=== PATIENT | male | born 1955 | race Caucasian/White ===

== ENCOUNTER 2017-12-27 15:15 | Emergency (ER) | payer MEDICAID ==
[~2017-12-27] VITALS: Ht 180.3 cm; Wt 88.8 kg
[~2017-12-27 15:15] MED LIST: NO HOME MEDS
[2017-12-27 15:29] VITALS: BP 131/88
[2017-12-27] MEDS ORDERED: HYDR-565 PO (15:59)
== END 2017-12-27 16:25 | disposition home or self-care (01) ==
LOC: ER 15:15
DX: M25.561 Pain in right knee (principal)
CPT/HCPCS: 73564; 99284

== ENCOUNTER 2021-04-15 11:15 | Emergency (ER) | payer MEDICARE, MEDICAID ==
[~2021-04-15] VITALS: Ht 180.3 cm; Wt 90.0 kg
[~2021-04-15 11:15] MED LIST changes: +LIDOcaine 1% W/epiNEPHrine 1:200,000 10ml vial ONE
[2021-04-15 12:13] LABS: MEAN PLATELET VOLUME 7.2 FL (7.4-10.4); RED CELL DISTRIBUTION WIDTH 15.3 % (11.5-14.5)
[2021-04-15 12:14] LABS: CLARITY,URINE CLEAR (Clear); COLOR,URINE YELLOW (Yellow); GLUCOSE, URINE NEGATIVE (Neg); KETONES,URINE TRACE mg/dl (Neg); LEUKOCYTE ESTERASE ,URINE NEGATIVE (Neg); NITRITES, URINE NEGATIVE (Neg); OCCULT BLOOD,URINE TRACE-INTACT (Neg); PH,URINE 5.5 (4.8-8.0); PROTEIN,URINE NEGATIVE (Neg)
[2021-04-15 12:15] LABS: BASOPHILS # (AUTO) 0.1 X10'3 (0-0.2); BASOPHILS % (AUTO) 1.5 % (0-1); EOSINOPHILS # (AUTO) 0.1 X10'3 (0-0.9); EOSINOPHILS % (AUTO) 1.7 % (0-6); HEMATOCRIT 41.7 % (42.0-52.0); HEMOGLOBIN 14.7 g/dl (14.0-17.9); LYMPHOCYTES # (AUTO) 1.9 X10'3 (1.1-4.8); LYMPHOCYTES % (AUTO) 26.1 % (21-51); MEAN CORPUSCULAR HGB CONC 35.4 g/dL (33.0-36.5); MEAN CORPUSCULAR VOLUME 101.8 FL (78-98); MONOCYTES # (AUTO) 0.7 X10'3 (0-0.9); MONOCYTES % (AUTO) 10.1 % (2-12); NEUTROPHILS # (AUTO) 4.4 X10'3 (1.8-7.7); NEUTROPHILS % (AUTO) 60.6 % (42-75); PLATELET COUNT 207 X10'3 (140-440); WHITE BLOOD COUNT 7.3 X10'3 (4.5-11.0)
[2021-04-15 12:18] LABS: UA COLLECTION TYPE CLN CATCH MIDSTREAM
[2021-04-15 12:19] LABS: BACTERIA,URINE NONE SEEN /HPF (Neg); MUCUS STRANDS MODERATE /LPF (Neg); RBC,URINE 0-2 /HPF (0-2); SQUAMOUS EPITHELIAL CELL,UR NONE SEEN /LPF (FEW); WBC,URINE NONE SEEN /HPF (0-4)
[2021-04-15 12:21] LABS: ALANINE AMINOTRANSFERASE 50 U/L (12-78); ALBUMIN 2.3 G/DL (3.4-5.0); ALBUMIN/GLOBULIN RATIO 0.4 (1.1-1.5); ALKALINE PHOSPHATASE 208 IU/L (46-116); ANION GAP 7 (8-16); ASPARTATE AMINO TRANSFERASE 64 U/L (10-37); BILIRUBIN,TOTAL 3.2 MG/DL (0.1-1.0); BLOOD UREA NITROGEN 9 MG/DL (7-18); BUN/CREATININE RATIO 10.7 (5.4-32.0); CALCIUM 8.3 MG/DL (8.5-10.1); CHLORIDE 105 MMOL/L (99-107); CREATININE 0.84 MG/DL (0.60-1.10); GLUCOSE 100 MG/DL (70-104); LIPASE 91 U/L (73-393); POTASSIUM 3.5 MMOL/L (3.5-5.1); SODIUM 136 MMOL/L (135-145); TOTAL CARBON DIOXIDE 23.7 MMOL/L (24-32); TOTAL PROTEIN 7.7 G/DL (6.4-8.2); eGFR > 90 ML/MIN
[2021-04-15] MEDS ORDERED: LIDOcaine 1% W/epiNEPHrine 1:200,000 10ml vial IJ ONE (15:05)
--- NOTE | 2021-04-15 15:39 | NUR ---
[facility]cent for paracentesis signed by pt.
[2021-04-15 17:10] VITALS: BP 137/83
--- NOTE | 2021-04-15 17:15 | NUR ---
Pt given and understands d/c instructions. Ambulatory with a steady gait. at bedside.
== END 2021-04-15 17:15 | disposition home or self-care (01) ==
LOC: ER 11:15
DX: K74.60 Unspecified cirrhosis of liver (principal); K70.11 Alcoholic hepatitis with ascites
CPT/HCPCS: 36415; 49083; 74176; 80053; 81001; 83690; 85025; 99285; J3490

== ENCOUNTER 2021-04-20 11:00 | Emergency (ER) | payer MEDICARE, MEDICAID ==
[~2021-04-20] VITALS: Ht 177.8 cm; Wt 93.2 kg
[~2021-04-20 11:00] MED LIST changes: -LIDOcaine 1% W/epiNEPHrine 1:200,000 10ml vial ONE
[2021-04-20] MEDS ORDERED: furosemide 10 MG/1 ML 10ml inj IV ONE (12:15)
[2021-04-20 12:31] LABS: BASOPHILS # (AUTO) 0.1 X10'3 (0-0.2); BASOPHILS % (AUTO) 0.9 % (0-1); EOSINOPHILS # (AUTO) 0.2 X10'3 (0-0.9); EOSINOPHILS % (AUTO) 2.2 % (0-6); HEMATOCRIT 40.9 % (42.0-52.0); HEMOGLOBIN 14.2 g/dl (14.0-17.9); LYMPHOCYTES # (AUTO) 1.9 X10'3 (1.1-4.8); LYMPHOCYTES % (AUTO) 26.1 % (21-51); MEAN CORPUSCULAR HEMOGLOBIN 35.5 PG (27.0-31.0); MEAN CORPUSCULAR HGB CONC 34.7 g/dL (33.0-36.5); MEAN CORPUSCULAR VOLUME 102.1 FL (78-98); MEAN PLATELET VOLUME 7.1 FL (7.4-10.4); MONOCYTES # (AUTO) 0.8 X10'3 (0-0.9); MONOCYTES % (AUTO) 11.6 % (2-12); NEUTROPHILS # (AUTO) 4.2 X10'3 (1.8-7.7); NEUTROPHILS % (AUTO) 59.2 % (42-75); PLATELET COUNT 168 X10'3 (140-440); RED CELL DISTRIBUTION WIDTH 15.1 % (11.5-14.5); WHITE BLOOD COUNT 7.2 X10'3 (4.5-11.0)
[2021-04-20 12:42] LABS: ALANINE AMINOTRANSFERASE 42 U/L (12-78); ALBUMIN 2.2 G/DL (3.4-5.0); ALBUMIN/GLOBULIN RATIO 0.4 (1.1-1.5); ALKALINE PHOSPHATASE 182 IU/L (46-116); ANION GAP 7 (8-16); ASPARTATE AMINO TRANSFERASE 56 U/L (10-37); BLOOD UREA NITROGEN 11 MG/DL (7-18); BUN/CREATININE RATIO 14.5 (5.4-32.0); CALCIUM 7.9 MG/DL (8.5-10.1); CHLORIDE 105 MMOL/L (99-107); CREATININE 0.76 MG/DL (0.60-1.10); GLUCOSE 105 MG/DL (70-104); POTASSIUM 3.5 MMOL/L (3.5-5.1); SODIUM 136 MMOL/L (135-145); TOTAL CARBON DIOXIDE 24.2 MMOL/L (24-32); TOTAL PROTEIN 7.3 G/DL (6.4-8.2); eGFR > 90 ML/MIN
[2021-04-20] MEDS ORDERED: SPIR50TA PO (13:34)
[2021-04-20] MEDS ORDERED: TRAM50TA2 PO (13:34)
[2021-04-20] MEDS ORDERED: CEPH250T PO (13:34)
[2021-04-20 14:02] VITALS: BP 134/84
== END 2021-04-20 14:07 | disposition home or self-care (01) ==
LOC: ER 11:01
DX: R18.8 Other ascites (principal); L03.311 Cellulitis of abdominal wall; K74.60 Unspecified cirrhosis of liver; B18.2 Chronic viral hepatitis C; Z86.19 Personal history of other infectious and parasitic diseases; Z72.89 Other problems related to lifestyle; Z79.2 Long term (current) use of antibiotics; Z79.899 Other long term (current) drug therapy
CPT/HCPCS: 36415; 80053; 85025; 85651; 96374; 99283; J1940

== ENCOUNTER 2021-04-27 07:32 | Day surgery (SDC) | payer MEDICARE, MEDICAID ==
[~2021-04-27] VITALS: Ht 177.8 cm; Wt 91.3 kg
[~2021-04-27 07:32] MED LIST changes: +CEPH250T PO; +SPIR50TA PO; +TRAM50TA2 PO
[2021-04-27 07:50] VITALS: BP 135/84
[2021-04-27] MEDS ORDERED: normal saline 1000ml 1,000 ML IV PRN (07:50)
[2021-04-27] MEDS ORDERED: albumin 25% 100mL bottle x 1 IV PRN (07:50)
[2021-04-27] MEDS ORDERED: FURO20TA4 PO (08:02)
[2021-04-27] MEDS ORDERED: SECU150P SQ (08:02)
[2021-04-27] MEDS ORDERED: SPIR50TA5 PO (08:05)
[2021-04-27] MEDS ORDERED: TRAM50TA2 PO (08:05)
[2021-04-27] MEDS ORDERED: CEPH250C PO (08:05)
[2021-04-27] MEDS ORDERED: LIDOcaine 1% 30ml preserv. free vial IJ STA (08:38)
[2021-04-27 09:26] VITALS: BP 117/76
[2021-04-27 09:45] VITALS: BP 135/70
[2021-04-27 10:00] VITALS: BP 117/67
[2021-04-27 10:30] VITALS: BP 114/72
[2021-04-27 11:00] VITALS: BP 115/78
== END 2021-04-27 11:05 | disposition home or self-care (01) ==
LOC: SSTAY O 07:32
PROVIDERS: ATTEND Preventive Medicine Aerospace Medicine
DX: R18.8 Other ascites (principal); R14.0 Abdominal distension (gaseous); K74.60 Unspecified cirrhosis of liver; Z86.19 Personal history of other infectious and parasitic diseases; Z72.89 Other problems related to lifestyle; Z79.899 Other long term (current) drug therapy; Z79.2 Long term (current) use of antibiotics
CPT/HCPCS: 49083; P9047

== ENCOUNTER 2021-06-05 07:22 | Day surgery (SDC) | payer MEDICARE, MEDICAID ==
[~2021-06-05] VITALS: Ht 177.8 cm; Wt 84.8 kg
[~2021-06-05 07:22] MED LIST changes: +CEPH250C PO; -CEPH250T PO; +FURO20TA4 PO; -NO HOME MEDS; +SECU150P SQ; -SPIR50TA PO; +SPIR50TA5 PO
[2021-06-05] MEDS ORDERED: LIDOcaine 1% 30ml preserv. free vial SQ STA (07:25)
[2021-06-05 07:36] VITALS: BP 125/78
[2021-06-05] MEDS ORDERED: albumin 25% 100mL bottle x 1 IV PRN (07:45)
[2021-06-05 08:40] VITALS: BP 112/72
[2021-06-05 08:55] VITALS: BP 119/73
[2021-06-05 09:10] VITALS: BP 120/63
[2021-06-05 09:26] VITALS: BP 104/62
== END 2021-06-05 09:35 | disposition home or self-care (01) ==
LOC: SSTAY O 07:22
PROVIDERS: ATTEND Preventive Medicine Aerospace Medicine
DX: R18.8 Other ascites (principal); R14.0 Abdominal distension (gaseous); K74.60 Unspecified cirrhosis of liver; Z86.19 Personal history of other infectious and parasitic diseases; Z72.89 Other problems related to lifestyle; Z79.899 Other long term (current) drug therapy
CPT/HCPCS: 49083

== ENCOUNTER 2021-07-11 07:10 | Day surgery (SDC) | payer MEDICARE, MEDICAID ==
[~2021-07-11] VITALS: Ht 177.8 cm; Wt 87.9 kg
[~2021-07-11 07:10] MED LIST changes: -CEPH250C PO
[2021-07-11 07:30] VITALS: BP 112/67
[2021-07-11] MEDS ORDERED: albumin 25% 100mL bottle x 1 IV PRN (07:30)
[2021-07-11] MEDS ORDERED: ONDA-103 PO (07:40)
[2021-07-11] MEDS ORDERED: LACT10SO67 PO (07:40)
[2021-07-11] MEDS ORDERED: OMEP40CA21 PO (07:40)
[2021-07-11] MEDS ORDERED: LIDOcaine 1% 30ml preserv. free vial IJ STA (08:17)
[2021-07-11] MEDS ORDERED: LIDOcaine 1% 30ml preserv. free vial SQ STA (08:38)
[2021-07-11 09:11] VITALS: BP 115/58
[2021-07-11 09:15] VITALS: BP 118/67
[2021-07-11 09:30] VITALS: BP 137/78
[2021-07-11 09:45] VITALS: BP 113/70
[2021-07-11 09:49] VITALS: BP 108/64
== END 2021-07-11 10:00 | disposition home or self-care (01) ==
LOC: SSTAY O 07:10
PROVIDERS: ATTEND Radiology Vascular & Interventional Radiology
DX: R18.8 Other ascites (principal); R14.0 Abdominal distension (gaseous); K74.60 Unspecified cirrhosis of liver; Z86.19 Personal history of other infectious and parasitic diseases; Z72.89 Other problems related to lifestyle; Z79.899 Other long term (current) drug therapy
CPT/HCPCS: 49083; J3490

== ENCOUNTER 2021-07-21 07:54 | Day surgery (SDC) | payer MEDICARE, MEDICAID ==
[~2021-07-21] VITALS: Ht 177.8 cm; Wt 90.4 kg
[2021-07-21] VITALS (9 sets, daily range): BP systolic 96–116; BP diastolic 53–87
[~2021-07-21 07:54] MED LIST changes: +LACT10SO67 PO; +OMEP40CA21 PO; +ONDA-103 PO
[2021-07-21] MEDS ORDERED: LIDOcaine 1%/PF 5ML 10 MG/ML VIAL SQ ONE (08:25)
[2021-07-21] MEDS: albumin 25% 100mL bottle x 1 IV PRN ×2 (09:38→09:39)
== END 2021-07-21 10:35 | disposition home or self-care (01) ==
LOC: SSTAY O 07:54
PROVIDERS: ATTEND Radiology Vascular & Interventional Radiology
DX: R18.8 Other ascites (principal); R14.0 Abdominal distension (gaseous); K74.60 Unspecified cirrhosis of liver; Z86.19 Personal history of other infectious and parasitic diseases; F17.210 Nicotine dependence, cigarettes, uncomplicated; Z79.899 Other long term (current) drug therapy
CPT/HCPCS: 49083; J3490; P9047

== ENCOUNTER 2021-08-01 08:11 | Day surgery (SDC) | payer MEDICARE, MEDICAID ==
[~2021-08-01] VITALS: Ht 180.3 cm; Wt 84.3 kg
[2021-08-01] VITALS (10 sets, daily range): BP systolic 97–120; BP diastolic 55–68
[2021-08-01] MEDS ORDERED: LIDOcaine 1%/PF 5ML 10 MG/ML VIAL SQ ONE (08:25)
[2021-08-01] MEDS ORDERED: normal saline 1000ml 1,000 ML IV PRN (08:25)
[2021-08-01] MEDS ORDERED: ALBUTEROL 90 MCG INH (08:30)
[2021-08-01] MEDS ORDERED: EPLE25TA4 PO (08:30)
[2021-08-01] MEDS ORDERED: MELA10TA PO (08:30)
[2021-08-01] MEDS ORDERED: SPIRIVA INH (08:30)
[2021-08-01] MEDS: albumin 25% 100mL bottle x 1 IV PRN ×2 (09:50→10:31)
--- NOTE | 2021-08-01 10:35 | NUR ---
Hung patient's 2nd bottle of Albumin. Transfusing 8 g per 1,000 ml para fluid drained out. Will have received 121.6 ml total of albumin. Tolerated well.
== END 2021-08-01 11:00 | disposition home or self-care (01) ==
LOC: SSTAY O 08:11
PROVIDERS: ATTEND Radiology Diagnostic Radiology
DX: R18.8 Other ascites (principal); R14.0 Abdominal distension (gaseous); K74.60 Unspecified cirrhosis of liver; Z86.19 Personal history of other infectious and parasitic diseases; Z72.89 Other problems related to lifestyle; Z79.899 Other long term (current) drug therapy
CPT/HCPCS: 49083; J3490; P9047

== ENCOUNTER 2021-08-14 07:53 | Day surgery (SDC) | payer MEDICARE, MEDICAID ==
[~2021-08-14] VITALS: Ht 177.8 cm; Wt 86.6 kg
[~2021-08-14 07:53] MED LIST changes: +ALBUTEROL 90 MCG INH; +EPLE25TA4 PO; +MELA10TA PO; -SPIR50TA5 PO; +SPIRIVA INH
[2021-08-14] MEDS ORDERED: albumin 25% 100mL bottle x 1 IV PRN (08:20)
[2021-08-14 08:21] VITALS: BP 112/67
[2021-08-14] MEDS ORDERED: LIDOcaine 1%/PF 5ML 10 MG/ML VIAL SQ ONE (08:35)
[2021-08-14 09:39] VITALS: BP 104/69
[2021-08-14 09:54] VITALS: BP 105/65
[2021-08-14 10:16] VITALS: BP 98/60
[2021-08-14 10:31] VITALS: BP 99/63
[2021-08-14 10:46] VITALS: BP 103/64
== END 2021-08-14 10:52 | disposition home or self-care (01) ==
LOC: SSTAY O 07:53
PROVIDERS: ATTEND Radiology Vascular & Interventional Radiology
DX: R18.8 Other ascites (principal); R14.0 Abdominal distension (gaseous); K74.60 Unspecified cirrhosis of liver; F17.210 Nicotine dependence, cigarettes, uncomplicated; Z86.19 Personal history of other infectious and parasitic diseases; Z79.899 Other long term (current) drug therapy
CPT/HCPCS: 49083; J3490; P9047

== ENCOUNTER 2021-08-25 05:53 | Day surgery (SDC) | payer MEDICARE, MEDICAID ==
[~2021-08-25] VITALS: Ht 180.3 cm; Wt 89.9 kg
[2021-08-25] VITALS (7 sets, daily range): BP systolic 102–119; BP diastolic 51–77
[2021-08-25] MEDS ORDERED: LIDOcaine 1%/PF 5ML 10 MG/ML VIAL SQ ONE (07:45)
[2021-08-25] MEDS: albumin 25% 100mL bottle x 1 IV PRN ×2 (08:28→09:26)
== END 2021-08-25 10:35 | disposition home or self-care (01) ==
LOC: SSTAY O 05:53
PROVIDERS: ATTEND Preventive Medicine Aerospace Medicine
DX: R18.8 Other ascites (principal); R14.0 Abdominal distension (gaseous); K74.60 Unspecified cirrhosis of liver; Z72.89 Other problems related to lifestyle; Z86.19 Personal history of other infectious and parasitic diseases
CPT/HCPCS: 49083; J3490; P9047

== ENCOUNTER 2021-09-04 07:33 | Day surgery (SDC) | payer MEDICARE, MEDICAID ==
[~2021-09-04] VITALS: Ht 177.8 cm; Wt 88.5 kg
[2021-09-04] VITALS (7 sets, daily range): BP systolic 112–122; BP diastolic 66–81
[~2021-09-04 07:33] MED LIST changes: -SPIRIVA INH
[2021-09-04] MEDS ORDERED: LIDOcaine 1%/PF 5ML 10 MG/ML VIAL SQ ONE (08:05)
[2021-09-04] MEDS: albumin 25% 100mL bottle x 1 IV PRN ×2 (09:56→10:40)
== END 2021-09-04 11:42 | disposition home or self-care (01) ==
LOC: SSTAY O 07:33
PROVIDERS: ATTEND Radiology Diagnostic Radiology
DX: R18.8 Other ascites (principal); R14.0 Abdominal distension (gaseous); K74.69 Other cirrhosis of liver; Z86.19 Personal history of other infectious and parasitic diseases; Z98.890 Other specified postprocedural states; Z87.891 Personal history of nicotine dependence; Z79.899 Other long term (current) drug therapy
CPT/HCPCS: 49083; P9047

== ENCOUNTER 2021-09-15 07:23 | Day surgery (SDC) | payer MEDICARE, MEDICAID ==
[2021-09-15] VITALS (12 sets, daily range): BP systolic 100–116; BP diastolic 58–74
[~2021-09-15] VITALS: Ht 177.8 cm; Wt 84.8 kg
[~2021-09-15 07:23] MED LIST changes: +LIDOcaine 1%/PF 5ML 10 MG/ML VIAL IJ ONE
[2021-09-15] MEDS ORDERED: normal saline 1000ml 1,000 ML IV PRN (07:50)
[2021-09-15] MEDS ORDERED: ENTE0.5T12 PO (08:06)
[2021-09-15] MEDS: albumin 25% 100mL bottle x 1 IV PRN ×2 (08:36→08:38)
== END 2021-09-15 11:30 | disposition home or self-care (01) ==
LOC: SSTAY O 07:23
PROVIDERS: ATTEND Radiology Diagnostic Radiology
DX: R18.8 Other ascites (principal); R14.0 Abdominal distension (gaseous); K74.60 Unspecified cirrhosis of liver; Z86.19 Personal history of other infectious and parasitic diseases; Z72.89 Other problems related to lifestyle; Z79.899 Other long term (current) drug therapy
CPT/HCPCS: 49083; J3490; P9047

== ENCOUNTER 2021-10-03 08:04 | Day surgery (SDC) | payer MEDICARE, MEDICAID ==
[2021-10-03] VITALS (10 sets, daily range): BP systolic 115–141; BP diastolic 67–81
[~2021-10-03] VITALS: Ht 177.8 cm; Wt 85.3 kg
[~2021-10-03 08:04] MED LIST changes: +ENTE0.5T12 PO; -LIDOcaine 1%/PF 5ML 10 MG/ML VIAL IJ ONE
[2021-10-03] MEDS ORDERED: LIDOcaine 1%/PF 5ML 10 MG/ML VIAL SQ ONE (08:10)
[2021-10-03] MEDS ORDERED: EPLE50TA3 PO (08:23)
[2021-10-03] MEDS ORDERED: albumin (human) 25% 100ml IV 100 ML IV ONE ×3 (08:25→10:15)
--- NOTE | 2021-10-03 11:00 | NUR ---
PIV DC cath intact. VSS, denies pain, dressing CD&I. Written and Verbal DC instructions given to pt and verbalize understanding. Pt amb to private car gait steady.
== END 2021-10-03 11:05 | disposition home or self-care (01) ==
LOC: SSTAY O 08:04
PROVIDERS: ATTEND Radiology Diagnostic Radiology
DX: R18.8 Other ascites (principal); R14.0 Abdominal distension (gaseous); K74.60 Unspecified cirrhosis of liver; Z86.19 Personal history of other infectious and parasitic diseases; Z72.89 Other problems related to lifestyle
CPT/HCPCS: 49083; J3490; P9047

== ENCOUNTER 2021-10-16 07:42 | Day surgery (SDC) | payer MEDICARE, MEDICAID ==
[2021-10-16] VITALS (9 sets, daily range): BP systolic 105–120; BP diastolic 68–77
[~2021-10-16] VITALS: Ht 177.8 cm; Wt 85.1 kg
[~2021-10-16 07:42] MED LIST changes: -EPLE25TA4 PO; +EPLE50TA3 PO
[2021-10-16] MEDS ORDERED: LIDOcaine 1%/PF 5ML 10 MG/ML VIAL SQ ONE (07:50)
[2021-10-16] MEDS: albumin 25% 100mL bottle x 1 IV PRN ×2 (10:06→11:05)
== END 2021-10-16 11:55 | disposition home or self-care (01) ==
LOC: SSTAY O 07:42
PROVIDERS: ATTEND Preventive Medicine Aerospace Medicine
DX: R18.8 Other ascites (principal); R14.0 Abdominal distension (gaseous); K74.60 Unspecified cirrhosis of liver; Z86.19 Personal history of other infectious and parasitic diseases; Z98.890 Other specified postprocedural states; Z72.89 Other problems related to lifestyle; Z79.899 Other long term (current) drug therapy
CPT/HCPCS: 49083; J3490; P9047

== ENCOUNTER 2021-10-27 07:33 | Day surgery (SDC) | payer MEDICARE, MEDICAID ==
[2021-10-27] VITALS (9 sets, daily range): BP systolic 106–122; BP diastolic 57–76
[~2021-10-27] VITALS: Ht 177.8 cm; Wt 85.6 kg
[2021-10-27] MEDS ORDERED: LIDOcaine 1%/PF 5ML 10 MG/ML VIAL SQ ONE (08:00)
[2021-10-27] MEDS: albumin 25% 100mL bottle x 1 IV PRN (09:32)
== END 2021-10-27 11:20 | disposition home or self-care (01) ==
LOC: SSTAY O 07:33
PROVIDERS: ATTEND Radiology Vascular & Interventional Radiology
DX: R18.8 Other ascites (principal); R14.0 Abdominal distension (gaseous); K74.60 Unspecified cirrhosis of liver; Z86.19 Personal history of other infectious and parasitic diseases; Z72.89 Other problems related to lifestyle
CPT/HCPCS: 49083; J3490; P9047; Z7610; A6258

== ENCOUNTER 2021-11-03 07:00 | Day surgery (SDC) | payer MEDICARE, MEDICAID ==
[~2021-11-03] VITALS: Ht 177.8 cm; Wt 81.7 kg
[2021-11-03] VITALS (11 sets, daily range): BP systolic 100–117; BP diastolic 58–74
[2021-11-03] MEDS ORDERED: NICO-687 (07:17)
[2021-11-03] MEDS ORDERED: LIDOcaine 1%/PF 5ML 10 MG/ML VIAL SQ ONE (07:20)
[2021-11-03] MEDS: albumin 25% 100mL bottle x 1 IV PRN (10:05)
== END 2021-11-03 11:03 | disposition home or self-care (01) ==
LOC: SSTAY O 07:00
PROVIDERS: ATTEND Radiology Diagnostic Radiology
DX: R18.8 Other ascites (principal); R14.0 Abdominal distension (gaseous); K74.60 Unspecified cirrhosis of liver; Z86.19 Personal history of other infectious and parasitic diseases; Z98.890 Other specified postprocedural states; Z72.89 Other problems related to lifestyle
CPT/HCPCS: 49083; J3490; P9047; Z7610; A6258; A6449

== ENCOUNTER 2021-11-14 07:57 | Day surgery (SDC) | payer MEDICARE, MEDICAID ==
[~2021-11-14] VITALS: Ht 177.8 cm; Wt 83.1 kg
[2021-11-14] VITALS (8 sets, daily range): BP systolic 101–118; BP diastolic 55–69
[~2021-11-14 07:57] MED LIST changes: +NICO-687
[2021-11-14] MEDS ORDERED: LIDOcaine 1%/PF 5ML 10 MG/ML VIAL SQ ONE (08:25)
[2021-11-14] MEDS ORDERED: FURO40TA4 PO (08:30)
[2021-11-14] MEDS: albumin 25% 100mL bottle x 1 IV PRN ×2 (09:14→09:44)
== END 2021-11-14 11:25 | disposition home or self-care (01) ==
LOC: SSTAY O 07:57
PROVIDERS: ATTEND Radiology Vascular & Interventional Radiology
DX: R18.8 Other ascites (principal); K74.60 Unspecified cirrhosis of liver; Z86.19 Personal history of other infectious and parasitic diseases; Z72.89 Other problems related to lifestyle; Z98.890 Other specified postprocedural states; Z79.899 Other long term (current) drug therapy
CPT/HCPCS: 49083; J3490; P9047; Z7610; A6258

== ENCOUNTER 2021-11-24 07:28 | Day surgery (SDC) | payer MEDICARE, MEDICAID ==
[~2021-11-24] VITALS: Ht 177.8 cm; Wt 83.7 kg
[2021-11-24] VITALS (10 sets, daily range): BP systolic 97–115; BP diastolic 58–75
[~2021-11-24 07:28] MED LIST changes: +FURO40TA4 PO
[2021-11-24] MEDS ORDERED: LIDOcaine 1%/PF 5ML 10 MG/ML VIAL IJ ONE (08:05)
[2021-11-24] MEDS ORDERED: TRAZ-251 PO (08:47)
[2021-11-24] MEDS: albumin 25% 100mL bottle x 1 IV PRN ×2 (09:25→10:06)
== END 2021-11-24 11:15 | disposition home or self-care (01) ==
LOC: SSTAY O 07:28
PROVIDERS: ATTEND Preventive Medicine Aerospace Medicine
DX: R18.8 Other ascites (principal); K74.60 Unspecified cirrhosis of liver; Z86.19 Personal history of other infectious and parasitic diseases; Z79.899 Other long term (current) drug therapy; Z98.890 Other specified postprocedural states; Z72.89 Other problems related to lifestyle
CPT/HCPCS: 49083; J3490; P9047; Z7610; A6258

== ENCOUNTER 2021-12-05 07:49 | Day surgery (SDC) | payer MEDICARE, MEDICAID ==
[2021-12-05] VITALS (8 sets, daily range): BP systolic 96–122; BP diastolic 58–68
[~2021-12-05] VITALS: Ht 177.8 cm; Wt 85.7 kg
[~2021-12-05 07:49] MED LIST changes: +TRAZ-251 PO
[2021-12-05] MEDS ORDERED: LIDOcaine 1% 30ml preserv. free vial SQ STA (08:04)
[2021-12-05] MEDS ORDERED: albumin 25% 100mL bottle x 1 IV PRN (08:25)
== END 2021-12-05 11:55 | disposition home or self-care (01) ==
LOC: SSTAY O 07:49
PROVIDERS: ATTEND Preventive Medicine Aerospace Medicine
DX: R18.8 Other ascites (principal); K74.60 Unspecified cirrhosis of liver; F17.210 Nicotine dependence, cigarettes, uncomplicated; Z90.49 Acquired absence of other specified parts of digestive tract; Z79.899 Other long term (current) drug therapy; Z98.890 Other specified postprocedural states; Z72.89 Other problems related to lifestyle; Z86.19 Personal history of other infectious and parasitic diseases
CPT/HCPCS: 49083; P9047; A6258

== ENCOUNTER 2021-12-14 07:10 | Day surgery (SDC) | payer MEDICARE, MEDICAID ==
[~2021-12-14] VITALS: Ht 177.8 cm; Wt 82.6 kg
[2021-12-14] MEDS ORDERED: albumin 25% 100mL bottle x 1 IV PRN (07:35)
[2021-12-14] MEDS ORDERED: LIDOcaine 1%/PF 5ML 10 MG/ML VIAL SQ ONE (08:10)
[2021-12-14 08:20] VITALS: BP 96/57
[2021-12-14] MEDS ORDERED: LIDOcaine 1%/PF 5ML 10 MG/ML VIAL IJ ONE (08:35)
[2021-12-14 09:32] VITALS: BP 111/66
[2021-12-14 09:53] VITALS: BP 105/66
[2021-12-14 10:01] VITALS: BP 102/66
[2021-12-14 10:02] VITALS: BP 102/66
[2021-12-14 10:15] VITALS: BP 100/64
== END 2021-12-14 10:35 | disposition home or self-care (01) ==
LOC: SSTAY O 07:10
PROVIDERS: ATTEND Radiology Vascular & Interventional Radiology
DX: R18.8 Other ascites (principal); K74.60 Unspecified cirrhosis of liver; Z98.890 Other specified postprocedural states; Z79.899 Other long term (current) drug therapy; Z86.19 Personal history of other infectious and parasitic diseases
CPT/HCPCS: 49083; J3490; P9047; A6258; A6449

== ENCOUNTER 2022-01-05 07:00 | Day surgery (SDC) | payer MEDICARE, MEDICAID ==
[~2022-01-05] VITALS: Ht 177.8 cm; Wt 85.1 kg
[2022-01-05] VITALS (10 sets, daily range): BP systolic 96–119; BP diastolic 46–72
[~2022-01-05 07:00] MED LIST changes: -FURO40TA4 PO; -MELA10TA PO
[2022-01-05] MEDS ORDERED: LIDOcaine 1%/PF 5ML 10 MG/ML VIAL SQ ONE (07:30)
[2022-01-05] MEDS: albumin 25% 100mL bottle x 1 IV PRN ×2 (08:27→09:39)
== END 2022-01-05 10:45 | disposition home or self-care (01) ==
LOC: SSTAY O 07:00
PROVIDERS: ATTEND Preventive Medicine Aerospace Medicine
DX: R18.8 Other ascites (principal); K74.60 Unspecified cirrhosis of liver; Z72.89 Other problems related to lifestyle
CPT/HCPCS: 49083; J3490; P9047; A6258

== ENCOUNTER 2022-01-16 07:45 | Day surgery (SDC) | payer MEDICARE, MEDICAID ==
[~2022-01-16] VITALS: Ht 177.8 cm; Wt 85.6 kg
[2022-01-16] VITALS (9 sets, daily range): BP systolic 99–120; BP diastolic 35–69
[2022-01-16] MEDS ORDERED: LIDOcaine 1% 30ml preserv. free vial SQ STA (08:00)
[2022-01-16] MEDS: albumin 25% 100mL bottle x 1 IV PRN ×2 (09:40→10:19)
== END 2022-01-16 11:25 | disposition home or self-care (01) ==
LOC: SSTAY O 07:45
PROVIDERS: ATTEND Radiology Diagnostic Radiology
DX: R18.8 Other ascites (principal); K74.60 Unspecified cirrhosis of liver; Z98.890 Other specified postprocedural states; Z79.899 Other long term (current) drug therapy; Z72.89 Other problems related to lifestyle
CPT/HCPCS: 49083; J3490; P9047; A6258; A6449

== ENCOUNTER 2022-01-26 07:37 | Day surgery (SDC) | payer MEDICARE, MEDICAID ==
[~2022-01-26] VITALS: Ht 177.8 cm; Wt 87.1 kg
[2022-01-26 08:08] VITALS: BP 103/64
[2022-01-26] MEDS ORDERED: albumin 25% 100mL bottle x 1 IV PRN (08:20)
[2022-01-26 09:26] VITALS: BP 118/66
[2022-01-26 09:30] VITALS: BP 112/70
[2022-01-26 09:46] VITALS: BP 102/62
[2022-01-26 10:00] VITALS: BP 102/60
[2022-01-26 10:15] VITALS: BP 106/59
== END 2022-01-26 10:30 | disposition home or self-care (01) ==
LOC: SSTAY O 07:37
PROVIDERS: ATTEND Radiology Vascular & Interventional Radiology
DX: R18.8 Other ascites (principal); K74.60 Unspecified cirrhosis of liver; Z79.899 Other long term (current) drug therapy; Z98.890 Other specified postprocedural states; Z72.89 Other problems related to lifestyle; Z86.19 Personal history of other infectious and parasitic diseases
CPT/HCPCS: 49083; P9047; A6258

== ENCOUNTER 2022-02-05 07:41 | Day surgery (SDC) | payer MEDICARE, MEDICAID ==
[2022-02-05] VITALS (10 sets, daily range): BP systolic 101–111; BP diastolic 56–67
[~2022-02-05] VITALS: Ht 177.8 cm; Wt 84.9 kg
[2022-02-05] MEDS ORDERED: LIDOcaine 1% 30ml preserv. free vial SQ STA (08:19)
[2022-02-05] MEDS: albumin 25% 100mL bottle x 1 IV PRN ×2 (08:32→10:38)
== END 2022-02-05 11:35 | disposition home or self-care (01) ==
LOC: SSTAY O 07:41
PROVIDERS: ATTEND Radiology Vascular & Interventional Radiology
DX: R18.8 Other ascites (principal); K74.60 Unspecified cirrhosis of liver; F17.210 Nicotine dependence, cigarettes, uncomplicated; Z86.19 Personal history of other infectious and parasitic diseases; Z72.89 Other problems related to lifestyle; Z79.899 Other long term (current) drug therapy; Z98.890 Other specified postprocedural states
CPT/HCPCS: 49083; J3490; P9047; A6258; A6449

== ENCOUNTER 2022-02-14 21:38 | Emergency (ER) | payer MEDICARE, MEDICAID ==
[~2022-02-14] VITALS: Ht 177.8 cm; Wt 89.5 kg
[2022-02-14 22:10] LABS: BASOPHILS % (AUTO) 0.6 % (0-1); EOSINOPHILS # (AUTO) 0.1 X10'3 (0-0.9); EOSINOPHILS % (AUTO) 1.9 % (0-6); HEMOGLOBIN 13.2 g/dl (14.0-17.9); LYMPHOCYTES # (AUTO) 1.1 X10'3 (1.1-4.8); LYMPHOCYTES % (AUTO) 15.2 % (21-51); MEAN CORPUSCULAR HEMOGLOBIN 37.8 PG (27.0-31.0); MEAN CORPUSCULAR HGB CONC 34.6 g/dL (33.0-36.5); MEAN CORPUSCULAR VOLUME 109.3 FL (78-98); MEAN PLATELET VOLUME 6.8 FL (7.4-10.4); MONOCYTES # (AUTO) 1.1 X10'3 (0-0.9); NEUTROPHILS # (AUTO) 5.2 X10'3 (1.8-7.7); NEUTROPHILS % (AUTO) 68.3 % (42-75); PLATELET COUNT 143 X10'3 (140-440); RED BLOOD COUNT 3.48 X10'6 (4.70-6.10); RED CELL DISTRIBUTION WIDTH 16.1 % (11.5-14.5); WHITE BLOOD COUNT 7.6 X10'3 (4.5-11.0)
[2022-02-14 22:23] LABS: ALANINE AMINOTRANSFERASE 72 U/L (12-78); ALKALINE PHOSPHATASE 289 IU/L (46-116); ANION GAP 6 (8-16); ASPARTATE AMINO TRANSFERASE 107 U/L (10-37); BILIRUBIN,TOTAL 5.4 MG/DL (0.1-1.0); BLOOD UREA NITROGEN 12 MG/DL (7-18); BUN/CREATININE RATIO 15.6 (5.4-32.0); CALCIUM 7.7 MG/DL (8.5-10.1); CHLORIDE 99 MMOL/L (99-107); CREATININE 0.77 MG/DL (0.60-1.10); GLUCOSE 108 MG/DL (70-104); LIPASE 246 U/L (73-393); POTASSIUM 3.9 MMOL/L (3.5-5.1); SODIUM 128 MMOL/L (135-145); TOTAL CARBON DIOXIDE 22.8 MMOL/L (24-32); eGFR > 90 ML/MIN
[2022-02-14 22:40] LABS: ALBUMIN/GLOBULIN RATIO 0.4 (1.1-1.5); TOTAL PROTEIN 6.7 G/DL (6.4-8.2)
[2022-02-14 22:57] LABS: ANISOCYTOSIS 1+; BURR CELLS FEW; PLATELET ESTIMATE NORMAL; TEAR DROP CELLS FEW
[2022-02-15] MEDS ORDERED: albumin (human) 25% 100 ML IV solution IV ONE ×2 (00:50→02:40)
[2022-02-15] MEDS ORDERED: LIDOcaine 1% W/epiNEPHrine 1:200,000 10ml vial IJ STA (01:47)
[2022-02-15] MEDS ORDERED: LIDOcaine 1% w/EPI 1:100,000 30ml vial (MDV) ONE (01:49)
[2022-02-15 03:20] VITALS: BP 98/62
--- NOTE | 2022-02-15 03:48 | NUR ---
9L of fluid taken off during parcentesis.
== END 2022-02-15 04:15 | disposition home or self-care (01) ==
LOC: ER 21:39
DX: R18.8 Other ascites (principal); R06.00 Dyspnea, unspecified; E87.1 Hypo-osmolality and hyponatremia; D53.9 Nutritional anemia, unspecified; Z79.899 Other long term (current) drug therapy; Z88.8 Allergy status to other drugs, medicaments and biological substances
CPT/HCPCS: 36415; 49083; 80053; 83690; 83735; 85008; 85025; 96374; 96376; 99285; J3490; P9047

== ENCOUNTER 2022-02-23 07:57 | Day surgery (SDC) | payer MEDICARE, MEDICAID ==
[~2022-02-23] VITALS: Ht 177.8 cm; Wt 82.8 kg
[2022-02-23] VITALS (9 sets, daily range): BP systolic 98–115; BP diastolic 53–70
[2022-02-23] MEDS: albumin 25% 100mL bottle x 1 IV PRN ×2 (09:40→10:25)
== END 2022-02-23 11:20 | disposition home or self-care (01) ==
LOC: SSTAY O 07:57
PROVIDERS: ATTEND Radiology Vascular & Interventional Radiology
DX: R18.8 Other ascites (principal); F17.210 Nicotine dependence, cigarettes, uncomplicated; K74.60 Unspecified cirrhosis of liver; Z79.899 Other long term (current) drug therapy; Z98.890 Other specified postprocedural states
CPT/HCPCS: 49083; C1729; P9047; A6258; A6402

== ENCOUNTER 2022-03-04 18:18 | Emergency (ER) | payer MEDICARE, MEDICAID ==
[~2022-03-04] VITALS: Ht 188 cm; Wt 86.0 kg
[~2022-03-04 18:18] MED LIST changes: -ONDA-103 PO
[2022-03-04] MEDS ORDERED: LIDOcaine 1% W/epiNEPHrine 1:100,000 20ml vial SQ ONE (19:45)
[2022-03-04] MEDS ORDERED: albumin (Human) 5% 250ml 250 ML IV ONE (19:50)
[2022-03-04] MEDS ORDERED: LIDOCAINE 1%/EPI 1:100,000 inj. 10 ML multi-dose vial SQ ONE (19:50)
[2022-03-04] MEDS ORDERED: ALBUMIN HUMAN 5% IV ONE (19:55)
[2022-03-04 20:54] LABS: BASOPHILS % (AUTO) 0.5 % (0-1); EOSINOPHILS # (AUTO) 0.1 X10'3 (0-0.9); EOSINOPHILS % (AUTO) 1.3 % (0-6); HEMATOCRIT 38.2 % (42.0-52.0); HEMOGLOBIN 13.2 g/dl (14.0-17.9); LYMPHOCYTES # (AUTO) 0.9 X10'3 (1.1-4.8); LYMPHOCYTES % (AUTO) 11.3 % (21-51); MEAN CORPUSCULAR HEMOGLOBIN 37.6 PG (27.0-31.0); MEAN CORPUSCULAR HGB CONC 34.6 g/dL (33.0-36.5); MEAN CORPUSCULAR VOLUME 108.5 FL (78-98); MEAN PLATELET VOLUME 6.8 FL (7.4-10.4); MONOCYTES # (AUTO) 0.9 X10'3 (0-0.9); MONOCYTES % (AUTO) 12.2 % (2-12); NEUTROPHILS # (AUTO) 5.7 X10'3 (1.8-7.7); NEUTROPHILS % (AUTO) 74.7 % (42-75); PLATELET COUNT 141 X10'3 (140-440); RED BLOOD COUNT 3.52 X10'6 (4.70-6.10); RED CELL DISTRIBUTION WIDTH 14.9 % (11.5-14.5); WHITE BLOOD COUNT 7.7 X10'3 (4.5-11.0)
[2022-03-04 21:07] LABS: ALANINE AMINOTRANSFERASE 58 U/L (12-78); ALBUMIN 2.2 G/DL (3.4-5.0); ALKALINE PHOSPHATASE 234 IU/L (46-116); ANION GAP 5 (8-16); ASPARTATE AMINO TRANSFERASE 80 U/L (10-37); BILIRUBIN,TOTAL 3.9 MG/DL (0.1-1.0); BLOOD UREA NITROGEN 17 MG/DL (7-18); BUN/CREATININE RATIO 25.8 (5.4-32.0); CHLORIDE 98 MMOL/L (99-107); CREATININE 0.66 MG/DL (0.60-1.10); GLUCOSE 100 MG/DL (70-104); LIPASE 176 U/L (73-393); POTASSIUM 4.9 MMOL/L (3.5-5.1); SODIUM 127 MMOL/L (135-145); TOTAL CARBON DIOXIDE 24.4 MMOL/L (24-32); eGFR > 90 ML/MIN
[2022-03-04 21:10] LABS: ALBUMIN/GLOBULIN RATIO 0.5 (1.1-1.5); TOTAL PROTEIN 6.6 G/DL (6.4-8.2)
--- NOTE | 2022-03-04 21:44 | NUR ---
CONSENT SIGNED FOR PARACENTESIS. PT TOLERATED PROCEDURE WELL. BP115/70
[2022-03-04 23:56] VITALS: BP 114/76
== END 2022-03-04 23:30 | disposition home or self-care (01) ==
LOC: ER 18:19
DX: R18.8 Other ascites (principal); Z79.899 Other long term (current) drug therapy
CPT/HCPCS: 49083; 80053; 83690; 85025; 96365; 96366; 99285; J3490; P9045

== ENCOUNTER 2022-03-12 06:44 | Day surgery (SDC) | payer MEDICARE, MEDICAID ==
[~2022-03-12] VITALS: Ht 177.8 cm; Wt 84.0 kg
[2022-03-12] VITALS (8 sets, daily range): BP systolic 97–110; BP diastolic 51–64
[2022-03-12] MEDS ORDERED: RIFA550T PO (07:06)
[2022-03-12] MEDS ORDERED: SODI1TAB2 PO (07:06)
[2022-03-12] MEDS ORDERED: ONDA4TAB12 PO (07:06)
[2022-03-12] MEDS ORDERED: albumin 25% 100mL bottle x 1 IV PRN (07:10)
[2022-03-12] MEDS ORDERED: LIDOcaine 1% 30ml preserv. free vial SQ STA (07:42)
== END 2022-03-12 09:35 | disposition home or self-care (01) ==
LOC: SSTAY O 06:44
PROVIDERS: ATTEND Radiology Vascular & Interventional Radiology
DX: R18.8 Other ascites (principal); K74.60 Unspecified cirrhosis of liver; F17.210 Nicotine dependence, cigarettes, uncomplicated; Z98.890 Other specified postprocedural states; Z79.899 Other long term (current) drug therapy
CPT/HCPCS: 49083; J3490; P9047; A6258; A6449

== ENCOUNTER 2022-03-19 06:57 | Day surgery (SDC) | payer MEDICARE, MEDICAID ==
[2022-03-19] VITALS (8 sets, daily range): BP systolic 105–138; BP diastolic 65–88
[~2022-03-19] VITALS: Ht 177.8 cm; Wt 85.0 kg
[~2022-03-19 06:57] MED LIST changes: +LIDOcaine 1% 30ml preserv. free vial SQ STA; +ONDA4TAB12 PO; +RIFA550T PO; +SODI1TAB2 PO
[2022-03-19] MEDS ORDERED: LIDOcaine 1% 30ml preserv. free vial SQ STA (07:12)
[2022-03-19] MEDS: albumin 25% 100mL bottle x 1 IV PRN ×2 (09:04→09:10)
== END 2022-03-19 11:00 | disposition home or self-care (01) ==
LOC: SSTAY O 06:57
PROVIDERS: ATTEND Radiology Vascular & Interventional Radiology
DX: R18.8 Other ascites (principal); K74.60 Unspecified cirrhosis of liver; L40.9 Psoriasis, unspecified; B19.10 Unspecified viral hepatitis B without hepatic coma; Z72.89 Other problems related to lifestyle; Z79.899 Other long term (current) drug therapy; Z98.890 Other specified postprocedural states
CPT/HCPCS: 49083; P9047; A6258

== ENCOUNTER 2022-03-31 15:57 | Emergency (ER) | payer MEDICARE, MEDICAID ==
[~2022-03-31 15:57] MED LIST changes: -LIDOcaine 1% 30ml preserv. free vial SQ STA
== END 2022-03-31 21:19 | disposition left against medical advice (07) ==
LOC: ER 15:58
DX: R18.8 Other ascites (principal); Z53.21 Procedure and treatment not carried out due to patient leaving prior to being seen by health care provider

== ENCOUNTER 2022-04-04 11:52 | Emergency (ER) | payer MEDICARE, MEDICAID ==
[~2022-04-04] VITALS: Ht 177.8 cm; Wt 72.7 kg
[2022-04-04] MEDS ORDERED: LIDOcaine 1% W/epiNEPHrine 1:100,000 20ml vial SQ ONE (16:50)
[2022-04-04] MEDS ORDERED: LIDOCAINE 1%/EPI 1:100,000 inj. 10 ML multi-dose vial SQ ONE (16:55)
[2022-04-04] MEDS ORDERED: albumin (human) 25% 100 ML IV solution IV ONE (17:15)
[2022-04-04 19:21] VITALS: BP 98/52
== END 2022-04-04 19:23 | disposition home or self-care (01) ==
LOC: ER 11:53
DX: C22.0 Liver cell carcinoma (principal); R06.03 Acute respiratory distress; Z79.899 Other long term (current) drug therapy; L40.9 Psoriasis, unspecified
CPT/HCPCS: 49083; 99285; J3490; J7030; P9047

== ENCOUNTER 2022-04-16 07:41 | Day surgery (SDC) | payer MEDICARE, MEDICAID ==
[2022-04-16] VITALS (12 sets, daily range): BP systolic 77–108; BP diastolic 48–66
[2022-04-16] MEDS ORDERED: normal saline 1000ml 1,000 ML IV PRN (08:05)
[2022-04-16] MEDS ORDERED: LIDOcaine 1% 30ml preserv. free vial SQ STA (08:16)
[2022-04-16] MEDS ORDERED: ondansetron/PF 4mg/2ml inj IV ONE (08:50)
[2022-04-16] MEDS: albumin 25% 100mL bottle x 1 IV PRN ×2 (09:31→10:46)
== END 2022-04-16 11:50 | disposition home or self-care (01) ==
LOC: SSTAY O 07:41
PROVIDERS: ATTEND Radiology Vascular & Interventional Radiology
DX: C22.0 Liver cell carcinoma (principal); R18.0 Malignant ascites; K74.60 Unspecified cirrhosis of liver; L40.9 Psoriasis, unspecified; Z79.899 Other long term (current) drug therapy; Z98.890 Other specified postprocedural states
CPT/HCPCS: 49083; P9047; A6258